=== PATIENT | male | born 1980 | race Two or more races ===

== ENCOUNTER 2018-12-29 21:59 | Emergency (ER) | payer OTHER ==
--- NOTE | 2018-12-29 22:16 | PDOC ---
History of Present Illness - General Chief Complaint: Respiratory Stated Complaint: CONGESTION,HEADACHE Time Seen by Provider: 12/29/18 22:00 History Source: Patient Exam Limitations: No Limitations - History of Present Illness Initial Comments: 12/29/18 22:25 This is a 38-year-old male who comes in complaining of several days of congestion of his sinuses and headache. Patient said he has been taking Tylenol which helps but hasn't been taking it away completely. Patient said he stopped taking the Tylenol and the got worse. Patient also over the last 24 hours is been complaining of some chills and then sweating episodes the Tylenol. Patient denies any cough or congestion. Patient denies any shortness of breath. Patient said that the headache is in the frontal area and area of the sinuses as well as some soreness in the act of the head and neck. Patient denies any fevers or chills however he does not have a thermometer does not take his temperature. Patient does not take any medications otherwise and is otherwise healthy. Allergies: as per nursing notes Past Medical History: none Social history: Lives with family. No smoking. No alcohol. No illicit drugs. Surgical history: None General: No fevers or chills, no weakness, no weight loss HEENT: No change in vision. No sore throat,. No ear pain, sinur pain CardioVascular: no chest discomfort. No shortness of breath Respiratory:No cough, or wheezing. Gastrointestinal: no nausea, vomiting, diarrhea or constipation, No rectal bleeding Genitourinary: No dysuria, hematuria, or frequency Musculoskeletal: No joint or muscle pain or swelling Neurologic: No headache, vertigo, dizziness or loss of consciousness Psychiatric: nor depression Skin: No rashes or easy bruising Endocrine: no increased thirst or abnormal weight change Allergic: no skin or latex allergy All other systems reviewed and normal Exam: General: Well-nourished well-developed individual, no acute distress HEENT: Throat: Normal, tonsils normal, no erythema or exudate Sinuses: There is some palpation over the maxillary sinuses. Neck: Supple, no meningeal signs, no lymphadenopathy, there is some mild muscle spasm in the posterior muscles of the neck. She Eyes::Pupils equal reactive and round, extraocular motion intact Chest: Nontender to palpation Cardiac: S1-S2 normal, regular rate and rhythm, no murmurs rubs or gallops Respiratory: Lungs clear to auscultation bilateral Abdomen: Soft, nondistended, normal bowel sounds, there is no tenderness on palpation diffusely Extremities: Warm, dry, no cyanosis, clubbing, or edema Skin: No rashes Neuro: Alert and oriented x3, CN II - XII intact, nonfocal exam with normal strength, normal sensation, normal reflexes, normal gait, Psych: Normal mood and affect Assessment and plan: This is a 38-year-old male who comes in complaining of sinus pain headache and probable fever secondary to a sinusitis. Patient was also complaining of some brief episodes of chest pain that lasted a few seconds so it EKG was done which was completely normal and patient was reassured that there may be an anxiety component but his chest/cardiogram are normal. Patient given Toradol for the headache and started on azithromycin for the sinus infection. Patient discharged home will follow-up with his primary care doctor Past History - Past Medical History Allergies/Adverse Reactions: Allergies Allergy/AdvReac Type Severity Reaction Status Date / Time No Known Allergies Allergy Verified 12/29/18 22:12 Home Medications: Ambulatory Orders NK [No Known Home Medication] 12/29/18 *DC/Admit/Observation/Transfer Diagnosis at time of Disposition: Sinusitis, acute Qualifiers: Sinusitis location: frontal Recurrence: not specified as recurrent Qualified Code(s): J01.10 - Acute frontal sinusitis, unspecified - Discharge Dispostion Disposition: HOME Condition at time of disposition: Stable Decision to Admit order: No - Referrals - Patient Instructions Additional Instructions: Take azithromycin 1 tablet a day for the next 4 days this will be for the sinus congestion and discomfort. Tylenol or Motrin as needed for pain or fevers. Return to the emergency department immediately with ANY new, persistent or worsening symptoms. Continue any medications as previously prescribed by your physician. You should follow up with your primary doctor as soon as possible regarding today's emergency department visit. . Please make sure your doctor reviews the results of your emergency evaluation. Thank you for coming to the Emergency Department today for your care. It was a pleasure to see you today. Please note that your evaluation is INCOMPLETE until you follow-up with your doctor. - Post Discharge Activity
[2018-12-29 22:17] VITALS: BP 142/95; PULSE 95; TEMP 98.3; BMI 32.4
[2018-12-29] MEDS ORDERED: AZITHROMYCIN 500 MG TABLET PO ONE (22:21)
[2018-12-29] MEDS ORDERED: KETOROLAC TROMETHAMINE 60 MG/2 ML VIAL IM ONE (22:21)
[2018-12-29] MEDS ORDERED: KETOROLAC TROMETHAMINE 60 MG/2 ML VIAL ONE (22:29)
[2018-12-29] MEDS ORDERED: AZITHROMYCIN 250 MG TABLET ONE (22:30)
--- NOTE | 2018-12-30 10:44 | EKG ---
Test Reason : Blood Pressure : / mmHG Vent. Rate : 087 BPM Atrial Rate : 087 BPM P-R Int : 156 ms QRS Dur : 078 ms QT Int : 354 ms P-R-T Axes : 042 035 023 degrees QTc Int : 425 ms NORMAL SINUS RHYTHM NORMAL ECG NO PREVIOUS ECGS AVAILABLE Confirmed by Uriel Suazo MD ([id number]) on 12/30/2018 10:44:15 AM Referred By: Confirmed By:Uriel Suazo MD
== END 2018-12-29 22:36 | disposition home or self-care (01) ==
LOC: FER 21:59
PROC: 3E0233Z Introduction of Anti-inflammatory into Muscle, Percutaneous Approach (ICD-10-PCS; principal; 2018-12-29)
DX: J01.10 Acute frontal sinusitis, unspecified (principal)
CPT/HCPCS: 93005; 99281-25